=== PATIENT | male | born 1965 | race Two or more races ===

== ENCOUNTER 2020-11-16 08:19 | Day surgery (SDC) | payer BC ==
[~2020-11-16] VITALS: Ht 180.3 cm; Wt 104.0 kg
[~2020-11-16 08:19] MED LIST: ACET325T9 PO; HYDROmorphone 2 MG/ML VIAL IVP PRN; IV RINGERS,LACTATED 1000ML 1,000 ML IV SCH; MORPHINE SULFATE 2 MG/ML INJ. IVP PRN; PROCHLORPERAZINE 10 MG/2 ML VIAL. IVP PRN; fentaNYL PF VIAL 100 MCG/2 ML VIAL IVP PRN
[2020-11-16] MEDS ORDERED: TURM500C4 PO (08:42)
[2020-11-16] MEDS ORDERED: LIDOCAINE 2% PF 5 ML VIAL. ONE (09:21)
[2020-11-16] MEDS ORDERED: PROPOFOL 10 MG/ML (20ML) VIAL. IV ONE (09:21)
[2020-11-16] MEDS ORDERED: MIDAZOLAM HCL/PF 2 MG/2 ML VIAL. ONE (09:21)
[2020-11-16] MEDS ORDERED: fentaNYL PF VIAL 100 MCG/2 ML VIAL ONE ×2 (09:21→12:42)
[2020-11-16] MEDS ORDERED: BUPIVACAINE-EPI 0.5% 30 ML VIAL KIT. ONE (10:56)
[2020-11-16] MEDS ORDERED: PHENYLEPHRINE in 0.9% NACL PF 1 MG/10 ML SYRINGE. IV ONE (11:37)
[2020-11-16] MEDS ORDERED: SEVOFLURANE 31 TO 60 MINUTES. IH ONE (11:37)
[2020-11-16] MEDS ORDERED: DEXAMETHASONE SOD PHOS 4 MG/ML VIAL ONE (11:37)
[2020-11-16] MEDS ORDERED: ONDANSETRON PF 4 MG/2 ML VIAL. ONE (11:37)
[2020-11-16] MEDS ORDERED: KETOROLAC 30 MG/ML VIAL. ONE (12:01)
[2020-11-16] MEDS ORDERED: HYDR-2765 PO (12:39)
[2020-11-16] MEDS: fentaNYL PF VIAL 100 MCG/2 ML VIAL IVP PRN ×2 (12:46→12:57)
[2020-11-16] MEDS ORDERED: HYDROcodone/APAP 7.5/325MG 1 TAB TABLET PO ONE (13:00)
--- NOTE | 2020-11-16 13:03 | DISCH ---
DISCHARGE INSTRUCTIONS Condition on Discharge Condition on Discharge: Stable Activity After Discharge Activity Instructions for Disc: Progressive ambulation Weight Bearing Status after Di: As tolerated Diet after Discharge Diet after Discharge: Regular Wound Incision Care Wound/Incision Care: Ice to area for comfort, Keep wound elevated, Change dressing (Remove dressing in 2 days may then shower no soaking until sutures removed) Contacting the after DC Call your doctor for: Concerns you may have Follow-Up Follow up with: Dr. Bullock or Tasneem 10 days DOMINGO BULLOCK MD Nov 16, 2020 13:03
[2020-11-16 13:09] VITALS: BP 136/77
--- NOTE | 2020-11-16 20:08 | PDOC4 ---
Operative Note Operative Note Date of surgery: 11/16/2020 Preoperative diagnosis: Medial meniscus tear right knee Postoperative diagnosis: Medial meniscus tear at posterior root, free edge tearing of body and posterior horn lateral meniscus and chondral flap tear medial femoral condyle Operative procedure: Right knee arthroscopy partial medial and lateral meniscectomy and chondroplasty medial femoral condyle Surgeon: Kobe Assist: Steve benz Anesthesia: General Estimated blood loss: 2 cc Complications: None Operative indications: Please see my orthopedic clinic note for detailed operative indications and note that we had covered the rationale for operative treatment of his meniscus injury based on his ongoing symptoms and the inability to undo any degenerative symptoms which would likely be treated with ongoing symptomatic management and we also covered the possibility of infection nerve or blood vessel damage continued pain medical or other anesthetic complications among others all his questions were answered and he wishes to proceed with surgical evaluation and treatment Operative text: Patient was identified procedure verified patient placed in the supine position on the operating table. After adequate amounts of general anesthesia were administered the right lower extremity was prepped and draped in standard sterile fashion with a thigh tourniquet. After timeout was performed patient procedure identified and verified the right lower extremity was e xsanguinated by Esmarch bandage tourniquet inflated to 300 mmHg and a standard lateral portal was established medial portal established using spinal needle localization and the knee joint was systematically examined. 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 He did have a displaceable tear of the posterior root area of the medial meniscus which was trimmed back to stable tissue and the rest of the meniscal rim was stable and not requiring repair. He did have a chondral flap tear of the medial femoral condyle that was not full-thickness in nature and was trimmed back to stable tissue with the arthroscopic shaver. ACL was probed and found to be intact PCL was visually intact and on examination lateral compartment there was a free edge tear of the lateral meniscus primarily in the body area but extending to the posterior horn all of which was trimmed back to a stable edge with the arthroscopic biter and shaver. Radiusing was carried out to avoid any stress risers and all meniscal fragments were cleared out with the arthroscopic shaver. The knee was again toward to ensure no loose bodies present and was drained of arthroscopic fluid. Portals and fat pad area were injected with half percent plain Marcaine and portals were closed with nylon suture sterile soft dressings were applied toes were noted to be warm pink following deflation of the tourniquet and patient was returned to recovery room stable condition having tolerated procedure well. Steve benz was present for the procedure assisted in patient positioning prepping draping extremity positioning closure and dressings DOMINGO BENAVIDES MD Nov 16, 2020 20:08
== END 2020-11-16 13:47 | disposition home or self-care (01) ==
LOC: SURG 08:19
PROVIDERS: ATTEND Orthopaedic Surgery
DX: S83.241A Other tear of medial meniscus, current injury, right knee, initial encounter (principal); S83.281A Other tear of lateral meniscus, current injury, right knee, initial encounter; M94.261 Chondromalacia, right knee; M19.90 Unspecified osteoarthritis, unspecified site; Z79.899 Other long term (current) drug therapy; Z98.890 Other specified postprocedural states; X58.XXXA Exposure to other specified factors, initial encounter; Y93.89 Activity, other specified; Y92.89 Other specified places as the place of occurrence of the external cause; Y99.8 Other external cause status
CPT/HCPCS: 29880; A4930; J0690; J1100; J1885; J2250; J2370; J2405; J2704; J3010